=== PATIENT | male | born 1950 | race Caucasian/White ===

== ENCOUNTER 2017-05-02 13:07 | Emergency (ER) | payer OTHER ==
[~2017-05-02] VITALS: Ht 170.2 cm; Wt 94.4 kg
--- NOTE | 2017-05-02 13:32 | ED CARDIAC/CP/PALPITATIONS ---
History of Present Illness General Chief Complaint: Chest Pain Stated Complaint: CHEST PAIN Source: patient, family Exam Limitations: no limitations Vital Signs & Intake/Output Vital Signs & Intake/Output Vital Signs Date Time Temp Pulse Resp B/P B/P Pulse O2 O2 Flow FiO2 Mean Ox Delivery Rate 05/02 1937 98.1 75 15 125/74 97 Room Air 05/02 1806 97.8 79 16 129/76 95 Room Air 05/02 1546 98.1 82 18 133/82 98 Room Air 05/02 1409 96 05/02 1322 97.3 90 18 180/99 99 Room Air ED Intake and Output 05/03 0000 05/02 1200 Intake Total 1100 Output Total Balance 1100 Intake, IV 1000 Intake, Oral 100 Patient 208 lb Weight Weight Standing Scale Measurement Method Allergies Coded Allergies: No Known Allergies (05/02/17) Reconcile Medications Dorzolamide HCl/Timolol Maleat (Dorzolamide-Timolol Eye Drops) 22.3 MG-6.8 MG/ML DROPS 1 GTT OU BID BOTH EYES (Reported) Metformin HCl 500 MG TABLET 1 TAB PO BID DM (Reported) Triage Note: PT TO ED FOR CHEST PAIN, GENERALIZED WEAKNESS AND IRREGULAR HEART BEAT. PT'S VERY INVOLVED IN TRIAGE, TALKING OVER PATIENT AND STATING "I AM A TRAINED MEDICAL DOCTOR, HE HAD NO RADIAL PULSE LAST NIGHT, HE WAS CYANOTIC AND HIS HEART RATE WAS 156 BUT HE DIDN'T WANT TO GO TO THE HOSPITAL." Triage Nurses Notes Reviewed? yes Onset: Abrupt Duration: gone now, intermittent Timing: recent history Location: substernal HPI: Patient is a 66-year-old male with a past medical history of type 2 diabetes currently compliant with metformin who presents emergency room with for concerns of yesterday at approximately 10 PM while resting in bed patient had acute onset of chest tightness diaphoresis PALE complexion dizziness where the who states she is a [employer] license medical physician who states that patient had an irregular heart rate at approximately 150 bpm and was cyanotic and had no peripheral pulses in the upper extremities for approximately 40 minutes. She strongly advised patient to present to the emergency room however he declined patient was given 2 baby aspirins patient states that he went to sleep and rested comfortably and had no problems overnight. Patient woke up in his normal state of health and approximately 10 AM patient had acute onset of chest tightness again with mild dizziness which lasted approximately 10 minutes. Patient states that he is asymptomatic currently no aspirin was administered today patient is a former smoker approximately 30 years ago. Denies any illicit drug use does drink alcohol on occasion Denies any fevers chills headache blurred vision facial droop and slurred speech arm pain and jaw pain nausea vomiting back pain leg swelling, hemoptysis history of DVT or PE recent travel recent surgery (Vickey Carpio) Past History Travel History Traveled to [place] past 21 day No Medical History Any Pertinent Medical History? see below for history Neurological: NONE EENT: glaucoma Cardiovascular: NONE Respiratory: NONE Gastrointestinal: NONE Hepatic: NONE Renal: NONE Musculoskeletal: NONE Psychiatric: NONE Endocrine: diabetes Blood Disorders: NONE Cancer(s): NONE Surgical History Surgical History: non-contributory Psychosocial History What is your primary language Armenian Tobacco Use: Never used ETOH Use: denies use Illicit Drug Use: denies illicit drug use Family History Hx Contributory? No (Vickey Carpio) Review of Systems Review of Systems Constitutional: Reports: see HPI. EENTM: Reports: see HPI, blurred vision. Respiratory: Reports: see HPI. Denies: cough. Cardiovascular: Reports: see HPI, chest pain. GI: Reports: see HPI. Genitourinary: Reports: no symptoms. Musculoskeletal: Reports: no symptoms. Skin: Reports: no symptoms. Neurological/Psychological: Reports: no symptoms. Hematologic/Endocrine: Reports: no symptoms. Immunologic/Allergic: Reports: no symptoms. All Other Systems: Reviewed and Negative (Vickey Carpio) Physical Exam Physical Exam General Appearance: no apparent distress, obese Cardiovascular: regular rate/rhythm Core Measures ACS in differential dx? Yes CVA/TIA Diagnosis No Sepsis Present: No Sepsis Focused Exam Completed? No (Vickey Carpio) Progress Differential Diagnosis: AMI, aortic dissection, atrial fibrillation, cholecystitis, CHF/pulm edema, costochondritis, hyperkalemia, hypovolemia, hyperthyroid, hyperventilation, intracranial hemorrhage, musculoskeletal pain, myocarditis, pancreatitis, pericarditis, pneumonia, pneumothorax, PSVT, pulmonary embolism, PUD/GERD, PVCs/PACs, respiratory failure, rib fracture, sepsis, unstable angina, V-fib/V-Tach, WPW syndrome Plan of Care: Orders Procedure Date/time Status TROPONIN LEVEL 05/02 1800 Complete EKG 05/02 1800 Active EKG 05/02 1700 Active MAGNESIUM 05/02 1331 Complete Telemetry/Retail Asset Protection Specialist 05/02 1330 Active THYROID STIMULATING HORMONE 05/02 1330 Complete TROPONIN LEVEL 05/02 1330 Complete FREE T4 05/02 1330 Complete D-DIMER 05/02 1330 Complete COMPREHENSIVE METABOLIC PANEL 05/02 1330 Complete CBC WITHOUT DIFFERENTIAL 05/02 133 Complete EKG 05/02 1308 Active Laboratory Tests 05/02/17 1805: Troponin I < 0.01 05/02/17 1700: Troponin I Cancelled 05/02/17 1400: Magnesium 1.8 05/02/17 1400: Anion Gap 13, Estimated GFR > 60, BUN/Creatinine Ratio 30.0 H, Glucose 264 H, Calcium 9.6, Total Bilirubin 0.7, AST 38, ALT 69, Alkaline Phosphatase 147 H, Troponin I < 0.01, Total Protein 6.9, Albumin 4.1, Globulin 2.8, Albumin/ Globulin Ratio 1.5, TSH 2.160, Free T4 1.22, D-Dimer High Sensitivty < 200, CBC w Diff NO MAN DIFF REQ, RBC 4.83, MCV 95.4 H, MCH 32.5 H, RDW 13.0, MPV 8.4, Gran % 55.8, Lymphocytes % 33.4, Monocytes % 8.1, Eosinophils % 2.2, Basophils % 0.5, Absolute Granulocytes 4.6, Absolute Lymphocytes 2.8, Absolute Monocytes 0.7 H, Absolute Eosinophils 0.2, Absolute Basophils 0, PUBS MCHC 34.1 Patient currently resting COMFORTABLE AT bedside after initial history and physical exam, air sampling and monitoring placed, patient is asymptomatic prophylactic aspirin was administered Plan will be to receive second set troponin after 4 hours if all initial testing and imaging is unremarkable 1425- patient was reevaluated, resting comfortably, Asymptomatic Chest x-ray does show concerns of dilation of thoracic aorta and which CT scan was evaluated in which this was unremarkable. Patient had second set troponin and EKG unremarkable patient had no symptoms of chest pain while in the emergency room. Upon discharge patient looks well no apparent distress and was strongly advised to follow up and establish cardiology Diagnostic Imaging: Viewed by Me: Radiology Read, CT Scan. Radiology Impression: SEE COMMENTS CXR Impression: SEE COMMENTS Initial ED EKG: normal p-waves, normal QRS complex, normal sinus rhythm, 90 BPM, NSR Prior EKG: unchanged Comments: PATIENT: SAVANA CENTENO PRESENT AGE: 66 PATIENT ACCOUNT NO: [id number] : 52 LOCATION: [facility] ORDERING PHYSICIAN: Isabella PERDUE SERVICE DATE: 05/02/17 EXAM TYPE: CAT - CT ABD & PELVIS ANGIOGRAM; CTA CHEST EXAMINATION: CT ANGIOGRAM CHEST, ABDOMEN AND PELVIS CLINICAL INFORMATION: Chest pain, widening of the mediastinum seen on chest x-ray. COMPARISON: Chest x-ray same day. TECHNIQUE: Multiple axial images were obtained through the chest abdomen and pelvis after the administration of 120 mL of Optiray 320 intravenous contrast. Images were reviewed on a dedicated 3-D workstation. DLP: 1084.03 mGy-cm FINDINGS: CARDIOVASCULAR: The cardiac size is normal. No pericardial effusion. The thoracic aorta is normal in diameter. There is no evidence of dissection or aneurysmal dilatation of the thoracic aorta. The abdominal aorta is normal in diameter. The iliac arteries are normal in diameter and opacify normally. The pulmonary arteries are normal in diameter. There are no filling defects within the pulmonary arteries to the level of second segmental branches to suggest pulmonary embolus. CHEST: The visualized parts of the thyroid glands are unremarkable. The trachea and ivon are patent. There are no mediastinal, hilar or axillary adenopathy. The lungs are normally inflated. There is a 3 mm non-calcified pulmonary nodule in the lateral left lower lobe, as seen on axial image 43/132 from series 4. There is a linear density in the posterior right lower lobe with extension to the pleural surface as seen on axial image 35/132 from series 4. It could represent atelectasis. No pulmonary masses noted. No focal pulmonary consolidation. There is mild pleural thickening along the posterior surface of the right hemithorax. No pleural effusions. No pneumothorax. ABDOMEN AND PELVIS: The liver, spleen, pancreas, adrenal glands, gallbladder and kidneys are within normal limits. The loops of the small bowel and colon are not dilated. The appendix is visualized and within normal limits. There is no para-aortic or mesenteric or pelvic adenopathy. No free fluid or free air within the abdomen or pelvis. The urinary bladder is partially full. The prostate and seminal vesicles are unremarkable. BONES: There is no acute fracture or dislocation. Narrowing of L5-S1 intervertebral disc space with sclerotic changes of the adjacent endplates and vacuum disc phenomenon are noted. The findings are degenerative in nature. IMPRESSION: 1. No aneurysmal dilatation of the thoracic or abdominal aorta. No aortic dissection. 2. No pulmonary emboli. 3. Mild pleural thickening along the posterior right hemithorax. No pleural effusion. 4. No acute intra-abdominal findings. 5. L5-S1 discopathy. DICTATED BY: Emile Tolliver MD DATE/TIME DICTATED:05/02/171733 RECENTERER:ALYSA DATE/TIME TRANSCRIBED:05/02/171733 PATIENT: SAVANA CENTENO PRESENT AGE: 66 PATIENT ACCOUNT NO: [id number] : 52 LOCATION: [facility] ORDERING PHYSICIAN: Vickey PERDUE SERVICE DATE: 05/02/17 EXAM TYPE: RAD - XRY-CHEST XRAY, TWO VIEWS EXAMINATION: XR CHEST CLINICAL INFORMATION: Chest pain COMPARISON: None TECHNIQUE: 2 views of the chest were obtained. FINDINGS: The cardiac size is normal. There is prominence of the right upper mediastinal silhouette, can be due to dilatation of the ascending thoracic aorta. The pulmonary vascularity is normal. The lungs are clear. No pleural effusion. No pneumothorax. The visualized bones are unremarkable. IMPRESSION: No acute pulmonary findings. Mild prominence of the upper right mediastinal border, can be due to dilatation of the ascending thoracic aorta. Comparison with prior chest x-rays, if available is suggested. DICTATED BY: Emile Tolliver MD DATE/TIME DICTATED:05/02/171604 RECENTERER:ALYSA (Vickey Carpio) Departure Departure Disposition: HOME OR SELF CARE Condition: Stable Clinical Impression Primary Impression: Chest pain Referrals: Moises LANDON,Gustabo Odom (PCP/Family) Antonio LANDON,Marko Swain Additional Instructions: As discussed on Thursday please follow up and establish a warper creeler Dr. Alvarez for further evaluation treatment, if symptoms worsen or IF YOU develop new concerning symptom return to emergency room YOU may begin a prophylactic dose once a day of 81 mg baby aspirin Departure Forms: Customer Survey General Discharge Information (Vickey Carpio) PA/PRINTING PRESS OPERATOR Co-Sign Statement Statement: ED Attending supervision documentation- [X] I saw and evaluated the patient. I have also reviewed all the pertinent lab results and diagnostic results. I agree with the findings and the plan of care as documented in the PA's/PRINTING PRESS OPERATOR's documentation. [X] I have reviewed the ED Record and agree with the PA's/PRINTING PRESS OPERATOR's documentation. [] Additions or exceptions (if any) to the PAs/PRINTING PRESS OPERATOR's note and plan are summarized below: [] (Carol LANDON,Suman Tracey) Critical Care Note Critical Care Note Critical Care Time: non-applicable (Kailey PERDUE,Vickey)
[2017-05-02 14:18] LABS: ABSOLUTE BASOPHIL COUNT 0 /CUMM (0.0-0.2); ABSOLUTE EOSINOPHIL COUNT 0.2 /CUMM (0.0-0.7); ABSOLUTE GRANULOCYTE CT 4.6 /CUMM (1.4-6.5); ABSOLUTE LYMPH COUNT 2.8 /CUMM (1.2-3.4); ABSOLUTE MONOCYTE COUNT 0.7 /CUMM (0.10-0.60); BASOPHIL % 0.5 % (0.0-2.0); EOSINOPHIL % 2.2 % (0-5); GRANULOCYTE % 55.8 % (42.2-75.2); MEAN CORPUSCULAR HGB 32.5 PG (27.0-31.0); MEAN CORPUSCULAR HGB CONC 34.1 G/DL (33.0-37.0); MEAN CORPUSCULAR VOLUME 95.4 FL (80.0-94.0); MEAN PLATELET VOLUME 8.4 FL (7.4-10.4); PLATELET COUNT 215 /CUMM (130-400); RED BLOOD CELL CT 4.83 /CUMM (4.70-6.10); WHITE BLOOD CELL COUNT 8.3 /CUMM (4.8-10.8)
[2017-05-02] MEDS ORDERED: METFORMIN HCL500 M3 PO (15:57)
[2017-05-02] MEDS ORDERED: DORZOLAMIDE-TIM10 ML OU (15:58)
--- NOTE | 2017-05-02 16:13 | RADIOLOGY REPORT ---
EXAMINATION: XR CHEST CLINICAL INFORMATION: Chest pain COMPARISON: None TECHNIQUE: 2 views of the chest were obtained. FINDINGS: The cardiac size is normal. There is prominence of the right upper mediastinal silhouette, can be due to dilatation of the ascending thoracic aorta. The pulmonary vascularity is normal. The lungs are clear. No pleural effusion. No pneumothorax. The visualized bones are unremarkable. IMPRESSION: No acute pulmonary findings. Mild prominence of the upper right mediastinal border, can be due to dilatation of the ascending thoracic aorta. Comparison with prior chest x-rays, if available is suggested.
--- NOTE | 2017-05-02 18:20 | CT SCAN REPORT ---
EXAMINATION: CT ANGIOGRAM CHEST, ABDOMEN AND PELVIS CLINICAL INFORMATION: Chest pain, widening of the mediastinum seen on chest x-ray. COMPARISON: Chest x-ray same day. TECHNIQUE: Multiple axial images were obtained through the chest abdomen and pelvis after the administration of 120 mL of Optiray 320 intravenous contrast. Images were reviewed on a dedicated 3-D workstation. DLP: 1084.03 mGy-cm FINDINGS: CARDIOVASCULAR: The cardiac size is normal. No pericardial effusion. The thoracic aorta is normal in diameter. There is no evidence of dissection or aneurysmal dilatation of the thoracic aorta. The abdominal aorta is normal in diameter. The iliac arteries are normal in diameter and opacify normally. The pulmonary arteries are normal in diameter. There are no filling defects within the pulmonary arteries to the level of second segmental branches to suggest pulmonary embolus. CHEST: The visualized parts of the thyroid glands are unremarkable. The trachea and ivon are patent. There are no mediastinal, hilar or axillary adenopathy. The lungs are normally inflated. There is a 3 mm non-calcified pulmonary nodule in the lateral left lower lobe, as seen on axial image 43/132 from series 4. There is a linear density in the posterior right lower lobe with extension to the pleural surface as seen on axial image 35/132 from series 4. It could represent atelectasis. No pulmonary masses noted. No focal pulmonary consolidation. There is mild pleural thickening along the posterior surface of the right hemithorax. No pleural effusions. No pneumothorax. ABDOMEN AND PELVIS: The liver, spleen, pancreas, adrenal glands, gallbladder and kidneys are within normal limits. The loops of the small bowel and colon are not dilated. The appendix is visualized and within normal limits. There is no para-aortic or mesenteric or pelvic adenopathy. No free fluid or free air within the abdomen or pelvis. The urinary bladder is partially full. The prostate and seminal vesicles are unremarkable. BONES: There is no acute fracture or dislocation. Narrowing of L5-S1 intervertebral disc space with sclerotic changes of the adjacent endplates and vacuum disc phenomenon are noted. The findings are degenerative in nature. IMPRESSION: 1. No aneurysmal dilatation of the thoracic or abdominal aorta. No aortic dissection. 2. No pulmonary emboli. 3. Mild pleural thickening along the posterior right hemithorax. No pleural effusion. 4. No acute intra-abdominal findings. 5. L5-S1 discopathy.
[2017-05-02 19:37] VITALS: BP 125/74
== END 2017-05-02 19:42 ==
LOC: ERH 13:07
PROVIDERS: Physician Assistant
DX: R07.89 Other chest pain (principal)
CPT/HCPCS: 74174; 93005; 93010; 96360; 96361